=== PATIENT | male | born 1935 | race Asian ===

== ENCOUNTER 2021-08-20 23:25 | Emergency (ER) | payer MEDICARE, MEDICAID ==
[~2021-08-20] VITALS: Ht 165.1 cm; Wt 82.0 kg
[2021-08-21] MEDS ORDERED: AZITHROMYCIN 500MG/250ML 250 ML IV ONE
[2021-08-21] MEDS ORDERED: CEFTRIAXONE 1 G PREMIX 50 ML IV ONE
[2021-08-21] MEDS ORDERED: SODIUM CHLORIDE 0.9% 1,000 ML IV ONE
[2021-08-21 01:10] LABS: HEMATOCRIT. 42.7 % (42.0-52.0); HEMOGLOBIN. 13.7 g/dL (14.0-18.0); MEAN CORPUSCULAR HEMOGLOBIN 30.6 pg (28.0-32.0); MEAN CORPUSCULAR VOLUME 95.7 fL (80.0-94.0); MEAN PLATELET VOLUME 8.3 fl (7.4-10.4); PLATELET 352 x1000/uL (130-400); RED BLOOD CELL COUNT 4.46 mill/uL (4.7-6.1)
[2021-08-21 01:12] LABS: CHLORIDE 108 mEq/L (98-107)
[2021-08-21 01:20] LABS: CREATINE KINASE 196 IU/L (39-308)
[2021-08-21 01:50] LABS: INR 1.1; PROTHROMBIN TIME 11.6 sec (9.6-11.0)
[2021-08-21] MEDS ORDERED: ASPIRIN 325MG EC TABLET PO NR (02:30)
[2021-08-21] MEDS ORDERED: FUROSEMIDE 100MG/10ML VIAL IVP NR (02:30)
[2021-08-21 06:00] VITALS: BP 147/88
[2021-08-21] MEDS ORDERED: EPINEPHRINE 5 MG in SODIUM CHLORIDE 0.9% 250 ML IV PRN (06:45)
[2021-08-21 06:47] LABS: PLATELET ESTIMATE NORMAL
[2021-08-21] MEDS ORDERED: SODIUM BICARBONATE 8.4% 1 MEQ/ML 50ML SYR IV ONE ×2 (07:44→09:21)
[2021-08-21] MEDS ORDERED: CALCIUM CHLORIDE 1GM/10ML SYR IV ONE (09:21)
[2021-08-21] MEDS ORDERED: SODIUM CHLORIDE 0.9% 10ML VIAL ONE (09:21)
[2021-08-21] MEDS ORDERED: VECURONIUM BROMIDE 10 MG/VIAL IV ONE (09:21)
[2021-08-21] MEDS ORDERED: ETOMIDATE 2MG/ML 10ML VIAL IV ONE (09:21)
[2021-08-21] MEDS ORDERED: EPINEPHRINE 0.1MG/ML (1:10,000) 10ML SYR ONE (09:21)
[2021-08-21] MEDS ORDERED: MAGNESIUM SULFATE 4G IN WATER 100ML PREMIX IV ONE (09:21)
== END 2021-08-21 08:57 ==
LOC: ER 23:58 → EDBEDREQ 08-21 02:23 → EDBEDREQTM 08-21 02:23 → ER 08-21 08:57 → CANBEDREQ 08-21 15:49
DX: J18.9 Pneumonia, unspecified organism (principal); I10 Essential (primary) hypertension; A41.9 Sepsis, unspecified organism; R65.20 Severe sepsis without septic shock; R77.8 Other specified abnormalities of plasma proteins; I11.0 Hypertensive heart disease with heart failure; I50.9 Heart failure, unspecified; Z20.822 Contact with and (suspected) exposure to COVID-19
CPT/HCPCS: 36415; 71045; 80053; 82550; 83605; 83690; 83880; 84145; 84484; 85025; 85610; 87040; 87426; 87804; 93005; 94660; 96365; 96366; 96367; 96375; 99291; J0456; J0696; J1940; J3475; J3490; J7030